=== PATIENT | female | born 1945 | race Caucasian/White ===

== ENCOUNTER 2016-09-09 19:03 | Emergency (ER) | payer MEDICARE, BC ==
[~2016-09-09] VITALS: Ht 165.1 cm; Wt 80.0 kg
[2016-09-09 19:08] VITALS: BP 107/84; PULSE 90; RESP 18; TEMP 98; O2SAT 95
[2016-09-09] MEDS ORDERED: SIMV10TA PO (19:24)
[2016-09-09] MEDS ORDERED: VERA1TAB10 PO (19:24)
[2016-09-09] MEDS ORDERED: LISI40TA PO (19:24)
[2016-09-09] MEDS ORDERED: HYDR25TA5 PO (19:24)
[2016-09-09] MEDS ORDERED: HYDR-3533 PO ×2 (19:25→21:01)
--- NOTE | 2016-09-09 19:25 | PD ---
HPI Chief Complaint: Fall Time Seen by Provider: 19:10 Travel History International Travel<30 days: No Contact w/Intl Traveler<30days: No Traveled to known affect area: No History of Present Illness HPI 71-year-old female arrives by EMS. She experienced a mechanical fall stumbling upon entering a park facility and striking a with her left shoulder than fell to the ground. She was unable to get up 2/2 left shoulder/arm pain coupled with arthritic knees. Her called EMS and she is brought here. She states her left shoulder pain is 10 over 10 and worse with active range of motion and passive range of motion. No numbness tingling weakness or increased pain in the region distal humerus and in the distal remainder of the arm. She was struck her left head hour states it was very mild impact and has no scalp pain/ cephalgia now. No LOC occurred. No palpitation chest pain shortness breath diaphoresis nausea or lightheadedness accompanied the fall. EMS did note relative hypotension, evidently 85/40 on scene. In the ambulance the blood pressure was about 110 systolic. Upon arrival to the ER blood pressure in the exam room is 107/84 with pulse of 90. She states to antihypertensive agents however can only remember verapamil. PFSH Social History Tobacco Use: No Allergies-Medications (Allergen,Severity, Reaction): Coded Allergies: No Known Allergies (Unverified , 09/09/16) Reported Meds & Prescriptions Reported Meds & Active Scripts Active Lortab (Hydrocodone-Acetaminophen) 5-325 Mg Tab 1-2 Tab PO Q6H PRN Lortab (Hydrocodone-Acetaminophen) 5-325 Mg Tab 1-2 Tab PO Q6H PRN Reported Hydrocodone-Acetaminophen 5-325 mg Tab 1 Tab PO Q6H PRN Verapamil ER (Verapamil HCl) 180 Mg Tab 180 Mg PO DAILY Lisinopril 40 Mg Tab 40 Mg PO DAILY Simvastatin 10 Mg Tab 10 Mg PO HS Hydrochlorothiazide 25 Mg Tab 25 Mg PO DAILY Review of Systems Except as stated in HPI: all other systems reviewed are Neg Physical Exam Narrative GENERAL: 71 yo F, pleasant, WNWD SKIN: Warm and dry. HEAD: Atraumatic. Normocephalic. No contusion about the scalp. No evidence skull base fracture. EYES: Pupils equal and round. No scleral icterus. No injection or drainage. ENT: No nasal bleeding or discharge. Mucous membranes pink and moist. NECK: Trachea midline. No JVD. CARDIOVASCULAR: Regular rate and rhythm. RESPIRATORY: No accessory muscle use. Clear to auscultation. Breath sounds equal bilaterally. GASTROINTESTINAL: Abdomen soft, non-tender, nondistended. Hepatic and splenic margins not palpable. MUSCULOSKELETAL: No gross deformity LUE. Minimal tenderness at the anterior proximal aspect of the left humerus. Range of motion at the shoulder is limited secondary to pain. Elbow flexion and extension is intact though limited due to pain. Supination pronation on the left side is normal with normal wrist flexion and extension and handgrip. Radial artery pulse 2+ bilaterally. NEUROLOGICAL: Awake and alert. No obvious cranial nerve deficits. Motor grossly within normal limits. Five out of 5 muscle strength in the arms and legs. Normal speech. PSYCHIATRIC: Appropriate mood and affect; insight and judgment normal. Data Data Last Documented VS Vital Signs Date Time Temp Pulse Resp B/P Pulse Ox O2 Delivery O2 Flow Rate FiO2 09/09/16 21:41 89 18 104/70 96 Room Air 09/09/16 19:08 98.0 VS noted Orders Humerus (Min 2vws) (09/09/16 19:16) Ice/Cold Pack (09/09/16 19:16) Acetamin-Hydrocod 325-7.5 Mg ([place] 7.5 (09/09/16 19:30) ^ Sling (09/09/16 19:16) Shoulder, Limited(2vws) (09/09/16 19:16) Sling And Swathe (09/09/16 ) MDM Medical Decision Making Medical Screen Exam Complete: Yes Emergency Medical Condition: Yes Differential Diagnosis Shoulder dislocation, humerus fracture, contusion Narrative Course Last 24 hours Impressions Shoulder X-Ray 09/09/161915 Signed Impressions: Service Date/Time: Friday, September 09, 2016 19:34 - CONCLUSION: Acute proximal humeral fracture as detailed above. Avila Guan Jr., MD Humerus X-Ray 09/09/161915 Signed Impressions: Service Date/Time: Friday, September 09, 2016 19:33 - CONCLUSION: Acute fracture normal proximal humerus. Avila Guan Jr., MD On reassessing patient reports improvement having received Lortab. Vital signs have remained stable. She is agreeable with plan is ready for discharge. Sling and swathe applied. D/w mary Gonzalez for f/u in office this week. Diagnosis Primary Impression: Fracture of humeral head, left, closed Qualified Code: S42.292A - Fracture of humeral head, left, closed, initial encounter Additional Impression: Fall (on) (from) unspecified stairs and steps, initial encounter Referrals: Sharan Howard MD 2 days Additional Instructions: You have a choice when it comes to health care, and we are glad that you chose [facility]. Hopefully, we have met your expectations on today's visit. You are welcome to return to [facility] at any time, as we are committed to meeting the health care needs of our community. Med/Other Pt SpecificInfo: Prescription(s) given Scripts Hydrocodone-Acetaminophen (Lortab)5-325 Mg Tab1-2 Tab PO Q6H PRN (PAIN SCALE 6 TO 10) #20 TAB Ref 0 Prov:Manoj Dempsey MD 09/09/16 Disposition: 01 DISCHARGE HOME Condition: Stable Manoj Dempsey MD Sep 09, 2016 19:25
[2016-09-09] MEDS ORDERED: HYDR-3516 PO (19:26)
[2016-09-09] MEDS ORDERED: ACETAMINOPHEN/HYDROcodone 325 MG/7.5 MG TAB PO ONE (19:30)
--- NOTE | 2016-09-09 20:09 | RADRPT ---
EXAM DATE/TIME: 09/09/2016 19:33 [facility] COMPARISON: No previous studies available for comparison. INDICATIONS : Left proximal humerus pain after falling today. MEDICAL HISTORY : None. SURGICAL HISTORY : None. ENCOUNTER: Initial ACUITY: 1 day PAIN SCORE: 8/10 LOCATION: Left humerus. FINDINGS: 2 views of the left humerus reveal an acute fracture multiple proximal humerus. This is somewhat limi johnny in evaluation due to the lack of orthogonal views. Both views are left anterior oblique in nature . The fracture is felt to involve the greater tuberosity. No discrete extension to the articular surf yamila. CONCLUSION: Acute fracture normal proximal humerus. Avila Guan Jr., MD on September 09, 2016 at 20:07 Board Certified Radiologist. This report was verified electronically.
--- NOTE | 2016-09-09 20:10 | RADRPT ---
EXAM DATE/TIME: 09/09/2016 19:34 [facility] COMPARISON: No previous studies available for comparison. INDICATIONS : Left shoulder pain after falling today. MEDICAL HISTORY : None. SURGICAL HISTORY : None. ENCOUNTER: Initial ACUITY: 1 day PAIN SCORE: 8/10 LOCATION: Left shoulder. FINDINGS: 2 views of the shoulder are essentially the same obliquity. There is an acute fracture of the proxima l humerus. This is felt to involve the greater tuberosity. No discrete extension to the articular cirilo face. No significant diastases or angulation. Soft tissues are unremarkable. CONCLUSION: Acute proximal humeral fracture as detailed above. Avila Guan Jr., MD on September 09, 2016 at 20:08 Board Certified Radiologist. This report was verified electronically.
[2016-09-09 21:41] VITALS: BP 104/70; PULSE 89; RESP 18; O2SAT 96
== END 2016-09-09 22:18 | disposition home or self-care (01) ==
LOC: NEPC 19:03
DX: S42.292A Other displaced fracture of upper end of left humerus, initial encounter for closed fracture (principal); W19.XXXA Unspecified fall, initial encounter; W22.8XXA Striking against or struck by other objects, initial encounter; Y92.830 Public park as the place of occurrence of the external cause
CPT/HCPCS: 29240; 73030; 73060